=== PATIENT | male | born 1945 | race Caucasian/White ===

== ENCOUNTER 2017-07-03 12:16 | Inpatient (IN) | payer OTHER ==
[~2017-07-03] VITALS: Ht 162.6 cm; Wt 68.9 kg
[2017-07-04] MEDS ORDERED: TRADJENTA5 MG PO (07:48)
[2017-07-04] MEDS ORDERED: ASA-EC81 MG PO (07:48)
[2017-07-04] MEDS ORDERED: DIGOXIN125 MCG PO (07:49)
[2017-07-04] MEDS ORDERED: ALTACE2.5 MG PO (07:49)
[2017-07-04] MEDS ORDERED: LASIX20 MG PO (07:51)
[2017-07-04] MEDS ORDERED: TOPROL XL100 M1 PO (07:51)
[2017-07-04] MEDS ORDERED: ALDACTONE25 MG PO (07:52)
[2017-07-04] MEDS ORDERED: NEURIN SL (07:53)
[2017-07-11] MEDS ORDERED: TRADJENTA5 MG PO (11:08)
[2017-07-11] MEDS ORDERED: RAMIPRIL2.5 MG PO (11:08)
[2017-07-11] MEDS ORDERED: TOPROL XL100 M1 PO (11:08)
[2017-07-11] MEDS ORDERED: Neurin-Sl Tablet Sl SL (11:08)
[2017-07-11] MEDS ORDERED: SPIRONOLACTONE50 MG PO (11:08)
[2017-07-11] MEDS ORDERED: ASA-EC81 MG PO (11:08)
[2017-07-11] MEDS ORDERED: LEVAQUIN500 MG PO (11:08)
[2017-07-11] MEDS ORDERED: FUROSEMIDE20 MG PO (11:08)
[2017-07-11] MEDS ORDERED: LANOXIN125 MCG PO (11:08)
== END 2017-07-11 14:36 | disposition home health service (06) | DRG 982 ==
LOC: ER 12:16 → SEC-K 07-04 08:19 → MEDI 07-04 08:19
PROVIDERS: Orthopaedic Surgery Hand Surgery
PROC: BP3CZZZ Magnetic Resonance Imaging (MRI) of Right Hand/Finger Joint (ICD-10-PCS; 2017-07-04)
PROC: 0J9J0ZX Drainage of Right Hand Subcutaneous Tissue and Fascia, Open Approach, Diagnostic (ICD-10-PCS; 2017-07-08)
PROC: 0PBT0ZZ Excision of Right Finger Phalanx, Open Approach (ICD-10-PCS; principal; 2017-07-08 14:00)
DX: L02.511 Cutaneous abscess of right hand (principal); N17.8 Other acute kidney failure; M00.041 Staphylococcal arthritis, right hand; L03.011 Cellulitis of right finger; E86.0 Dehydration; E11.42 Type 2 diabetes mellitus with diabetic polyneuropathy; E78.4 Other hyperlipidemia; Z95.1 Presence of aortocoronary bypass graft; E11.22 Type 2 diabetes mellitus with diabetic chronic kidney disease; I12.9 Hypertensive chronic kidney disease with stage 1 through stage 4 chronic kidney disease, or unspecified chronic kidney disease; N18.3 Chronic kidney disease, stage 3 (moderate); B95.61 Methicillin susceptible Staphylococcus aureus infection as the cause of diseases classified elsewhere; M89.541 Osteolysis, right hand; Z78.1 Physical restraint status
CPT/HCPCS: 73218

== ENCOUNTER 2017-12-17 07:14 | Outpatient (CLI) | payer OTHER ==
[~2017-12-17 07:14] MED LIST: ALDACTONE25 MG PO; ALTACE2.5 MG PO; ASA-EC81 MG PO; DIGOXIN125 MCG PO; FUROSEMIDE20 MG PO; LANOXIN125 MCG PO; LASIX20 MG PO; LEVAQUIN500 MG PO; NEURIN SL; Neurin-Sl Tablet Sl SL; RAMIPRIL2.5 MG PO; SPIRONOLACTONE50 MG PO; TOPROL XL100 M1 PO; TRADJENTA5 MG PO
== END 2017-12-17 07:27 | disposition home or self-care (01) ==
LOC: LAB 07:14
DX: R21 Rash and other nonspecific skin eruption (principal); R05 Cough